=== PATIENT | female | born 1950 | race Caucasian/White ===

== ENCOUNTER 2018-09-11 06:32 | Inpatient (IN) | payer MEDICARE, OTHER ==
[2018-09-03 11:29] VITALS: BP 121/82
[~2018-09-11] VITALS: Ht 160 cm; Wt 80.5 kg
[~2018-09-11 06:32] MED LIST: ASPI-496 PO
[2018-09-11] MEDS ORDERED: LACTATED RINGERS 1,000 ML IV SCH (07:11)
[2018-09-11] MEDS ORDERED: SIMV20TA3 PO (07:15)
[2018-09-11] MEDS ORDERED: PANT40TA5 PO (07:15)
[2018-09-11] MEDS ORDERED: VITAMIN D3 PO (07:15)
[2018-09-11] MEDS ORDERED: VITAMIN B 12 PO (07:15)
[2018-09-11] MEDS ORDERED: MIDAZOLAM 1 MG/ML, 2ML ONE (07:51)
[2018-09-11] MEDS ORDERED: PROPOFOL 50 ML ONE (07:52)
[2018-09-11] MEDS ORDERED: FENTANYL PF 250 MCG/5ML ONE (07:52)
[2018-09-11] MEDS ORDERED: ACETAMINOPHEN 500 MG TABLET PO ONE (08:30)
[2018-09-11] MEDS ORDERED: GABAPENTIN 300 MG CAPSULE PO ONE (08:30)
[2018-09-11] MEDS ORDERED: ONDANSETRON ODT 8 MG PO ONE (08:30)
[2018-09-11] MEDS ORDERED: ROPIvacaine/PF 0.2%, 20 ML ONE (08:54)
[2018-09-11] MEDS ORDERED: KETOROLAC 60 MG/2 ML ONE (08:54)
[2018-09-11] MEDS ORDERED: TRANEXAMIC ACID 100 MG/ML, 10ML ONE (08:54)
[2018-09-11] MEDS ORDERED: SODIUM CHLORIDE 0.9% 100 ML ONE (08:54)
[2018-09-11] MEDS ORDERED: ONDANSETRON 2MG/ML, 2ML ONE (09:10)
[2018-09-11] MEDS ORDERED: CEFAZOLIN 1,000 MG ONE (09:10)
[2018-09-11] MEDS ORDERED: DIAZEPAM 5 MG TABLET PO PRN (09:30)
[2018-09-11] MEDS ORDERED: ALUMINUM/MAG/SIMETHICONE 30 ML UDC PO PRN (09:30)
[2018-09-11] MEDS ORDERED: ONDANSETRON 2MG/ML, 2ML IV PRN ×2 (09:30→10:00)
[2018-09-11] MEDS ORDERED: ZOLPIDEM 5MG TABLET PO PRN (09:30)
[2018-09-11] MEDS ORDERED: BISACODYL 10 MG SUPP PR PRN (09:30)
[2018-09-11] MEDS ORDERED: ONDANSETRON 4 MG TABLET PO PRN (09:30)
[2018-09-11] MEDS ORDERED: MAGNESIUM HYDROXIDE 8%, 30ML UDC PO PRN (09:30)
[2018-09-11] MEDS ORDERED: PROMETHAZINE 25 MG/ML, 1ML IM PRN (09:30)
[2018-09-11] MEDS ORDERED: HYDROmorphone 1 MG/ML, 1ML IV PRN ×2 (09:30→10:00)
[2018-09-11] MEDS ORDERED: DIPHENHYDRAMINE 25 MG CAPSULE PO PRN (09:30)
[2018-09-11] MEDS: ACETAMINOPHEN 650 MG/20.3 ML UDC PO SCH ×3 (09:30→21:22)
[2018-09-11] MEDS ORDERED: SENNA/DOCUSATE TABLET PO PRN (09:30)
[2018-09-11] MEDS ORDERED: PROMETHAZINE 12.5 MG SUPP PR PRN (09:30)
[2018-09-11] MEDS ORDERED: FENTANYL PF 100 MCG/2ML IV PRN (10:00)
[2018-09-11] MEDS ORDERED: ONDANSETRON ODT 8 MG PO PRN (10:00)
[2018-09-11] MEDS ORDERED: MORPHINE SULFATE 4 MG/ML, 1ML IVPush PRN (10:00)
[2018-09-11] MEDS ORDERED: OXYcodone 5 MG/5 ML ORAL.SOL UDC PO PRN (10:00)
[2018-09-11] MEDS ORDERED: LORazepam 2 MG/ML, 1ML IVPush PRN (10:00)
[2018-09-11] MEDS: TAMSULOSIN 0.4 MG CAP.ER.24H PO SCH (11:00)
[2018-09-11] MEDS ORDERED: TRANEXAMIC ACID 1,000 MG in SODIUM CHLORIDE 0.9% 100 ML IVPB ONE (11:00)
[2018-09-11 12:20] VITALS: BP 107/73
[2018-09-11 14:00] VITALS: BP 107/73
[2018-09-11] MEDS ORDERED: ACETAMINOPHEN 500 MG TABLET ONE (16:27)
[2018-09-11] MEDS: OXYcodone IR 5MG TABLET PO PRN ×2 (16:29→20:47)
[2018-09-11] MEDS: ASPIRIN 81 MG TABLET EC PO SCH (16:30)
[2018-09-11] MEDS: D5%-0.45% NACL 1,000 ML IV SCH (17:12)
[2018-09-11] MEDS: CEFAZOLIN PMX 1GM/50ML 50 ML IVPB SCH (17:12)
[2018-09-11 19:13] VITALS: BP 122/76
[2018-09-11] MEDS: DOCUSATE 100 MG CAPSULE PO SCH (20:46)
[2018-09-11] MEDS ORDERED: SIMVASTATIN 20 MG TABLET PO SCH (21:00)
[2018-09-12] MEDS: OXYcodone IR 5MG TABLET PO PRN ×3 (01:18→09:51)
[2018-09-12] MEDS: CEFAZOLIN PMX 1GM/50ML 50 ML IVPB SCH (01:18)
[2018-09-12 01:20] VITALS: BP 113/73
[2018-09-12] MEDS: D5%-0.45% NACL 1,000 ML IV SCH ×2 (02:37→10:30)
[2018-09-12] MEDS: ACETAMINOPHEN 650 MG/20.3 ML UDC PO SCH ×2 (03:33→10:11)
[2018-09-12] MEDS: ASPIRIN 81 MG TABLET EC PO SCH (05:52)
[2018-09-12] MEDS ORDERED: DEXAMETHASONE 4 MG/ML, 1ML IVPush SCH (06:00)
[2018-09-12 07:26] VITALS: BP 113/64
[2018-09-12] MEDS ORDERED: OXYC5TAB3 PO (08:56)
[2018-09-12] MEDS ORDERED: MULTIVITAMINS/MINERALS TABLET PO SCH (09:00)
[2018-09-12] MEDS ORDERED: PANTOPRAZOLE 20MG TABLET PO SCH (09:00)
[2018-09-12] MEDS ORDERED: KETOROLAC 30 MG/1 ML IV SCH (09:30)
[2018-09-12] MEDS ORDERED: ACETAMINOPHEN 500 MG TABLET ONE (09:45)
[2018-09-12] MEDS: DOCUSATE 100 MG CAPSULE PO SCH (09:51)
[2018-09-12] MEDS: TAMSULOSIN 0.4 MG CAP.ER.24H PO SCH (10:10)
== END 2018-09-12 14:00 | disposition home or self-care (01) | DRG 470 ==
LOC: OUT 06:32 → ORIP 09:04 → 4NOR 12:00 → DCLOUNGE 09-12 13:42
PROVIDERS: ADMIT Orthopaedic Surgery; ATTEND Orthopaedic Surgery
PROC: 3E0T3BZ Introduction of Anesthetic Agent into Peripheral Nerves and Plexi, Percutaneous Approach (ICD-10-PCS; 2018-09-11)
PROC: 0SRD0J9 Replacement of Left Knee Joint with Synthetic Substitute, Cemented, Open Approach (ICD-10-PCS; principal; 2018-09-11 09:15)
DX: M17.12 Unilateral primary osteoarthritis, left knee (principal); E78.5 Hyperlipidemia, unspecified; K21.9 Gastro-esophageal reflux disease without esophagitis; Z88.8 Allergy status to other drugs, medicaments and biological substances; Z86.718 Personal history of other venous thrombosis and embolism; Z86.711 Personal history of pulmonary embolism
CPT/HCPCS: 36415; 85014; 85018; C1713; G0378; J0690; J1100; J1885; J2250; J2405; J2704; J2795; J3010; Q0162; C1776; J7120